=== PATIENT | male | born 1970 | race African-American/Black ===

== ENCOUNTER 2017-06-28 16:50 | Emergency (ER) | payer MEDICAID, OTHER ==
[~2017-06-28] VITALS: Ht 175.3 cm; Wt 100.0 kg
[~2017-06-28 16:50] MED LIST: ASA; SOMAS; VICODIN
[2017-06-28] MEDS ORDERED: KETOROLAC 60MG/2ML VIAL IM STA (20:05)
[2017-06-28 20:49] LABS: BASOPHILS % 0.6 % (0.0-2.0); EOSINOPHILS % 0.6 % (0.0-5.0); HEMATOCRIT. 41.7 % (42.0-52.0); HEMOGLOBIN. 14.3 g/dL (14.0-18.0); LYMPHOCYTES % 15.9 % (20.0-50.0); MEAN CORPUSCULAR HEMOGLOBIN 30.6 pg (28.0-32.0); MEAN CORPUSCULAR VOLUME 89.2 fL (80.0-94.0); MEAN PLATELET VOLUME 7.8 fl (7.4-10.4); MONOCYTES % 14.2 % (2.0-8.0); NEUTROPHILS % 68.7 % (40.0-76.0); PLATELET 316 x1000/uL (130-400); RED BLOOD CELL COUNT 4.67 mill/uL (4.7-6.1)
[2017-06-28 20:54] LABS: CHLORIDE 94 mEq/L (98-107)
[2017-06-28 21:04] LABS: CARBON DIOXIDE 29 mEq/L (21-32)
[2017-06-29 01:17] VITALS: BP 143/81
== END 2017-06-29 01:17 | disposition home or self-care (01) ==
LOC: ER 20:58
DX: M10.9 Gout, unspecified (principal); M25.572 Pain in left ankle and joints of left foot; D16.32 Benign neoplasm of short bones of left lower limb; I10 Essential (primary) hypertension
CPT/HCPCS: 36415; 73590; 73630; 80053; 84550; 85025; 93971; 96372; 99285; J1885

== ENCOUNTER 2018-10-20 16:40 | Inpatient (IN) | payer OTHER ==
[~2018-10-20] VITALS: Ht 170.2 cm; Wt 104.9 kg
[2018-10-20] MEDS ORDERED: ASPIRIN 81MG TABLET PO ONE (20:00)
[2018-10-20] MEDS ORDERED: NITROGLYCERIN 0.4MG TABLET SL SL PRN (20:00)
[2018-10-20 20:10] LABS: CHLORIDE 98 mEq/L (98-107)
[2018-10-20 20:12] LABS: BASOPHILS % 1.2 % (0.0-2.0); HEMATOCRIT. 47.9 % (42.0-52.0); HEMOGLOBIN. 16.3 g/dL (14.0-18.0); LYMPHOCYTES % 27.1 % (20.0-50.0); MEAN CORPUSCULAR HEMOGLOBIN 30.9 pg (28.0-32.0); MEAN PLATELET VOLUME 8.1 fl (7.4-10.4); MONOCYTES % 9.8 % (2.0-8.0); NEUTROPHILS % 60.9 % (40.0-76.0); PLATELET 385 x1000/uL (130-400); RED BLOOD CELL COUNT 5.26 mill/uL (4.7-6.1); RED CELL DISTRIBUTION WIDTH 13.5 % (11.6-14.6)
[2018-10-20 20:18] LABS: D-DIMER < 0.19 mg/L FEU (<0.50); INR 1.2; PROTHROMBIN TIME 11.6 sec (9.1-11.1)
[2018-10-20] MEDS ORDERED: HYDROCODONE/ACETAMINOPHEN 5/325MG TABLET PO PRN (21:45)
[2018-10-20] MEDS ORDERED: MAGNESIUM/ALUMINUM HYDROXIDE/SIMETHICONE 30ML UDC PO PRN (21:45)
[2018-10-20] MEDS ORDERED: ACETAMINOPHEN 325MG TABLET PO PRN (21:45)
[2018-10-20] MEDS ORDERED: DOCUSATE SODIUM 100MG CAPSULE PO PRN (21:45)
[2018-10-20] MEDS ORDERED: ONDANSETRON HCL 4MG/2ML INJ IV PRN (21:45)
[2018-10-20] MEDS ORDERED: IPRATROPIUM/ALBUTEROL 0.5-3(2.5)MG/3ML NEB INH PRN (21:45)
[2018-10-20] MEDS ORDERED: CLONIDINE 0.1MG TABLET PO PRN (21:45)
[2018-10-20] MEDS ORDERED: IOHEXOL-350 100 ML BOTTLE ONE (21:57)
[2018-10-20 23:43] VITALS: BP 117/86
[2018-10-20 23:56] LABS: CHLORIDE 101 mEq/L (98-107)
[2018-10-20 23:59] LABS: ETHANOL BLOOD < 10 mg/dL
[2018-10-21 00:04] LABS: CREATINE KINASE 228 IU/L (39-308)
[2018-10-21 00:06] LABS: CREATINE KINASE MB FRACTION 1.8 ng/mL (0.5-3.6)
[2018-10-21] MEDS ORDERED: RIVA20TA PO (02:10)
[2018-10-21] MEDS ORDERED: OMEP20TA2 PO (02:10)
[2018-10-21] MEDS ORDERED: AMLO10TA80 PO (02:10)
[2018-10-21] MEDS ORDERED: TRIA1TAB92 PO (02:10)
[2018-10-21] MEDS ORDERED: ASPI-1158 PO (02:10)
[2018-10-21] MEDS ORDERED: COLC0.6C3 PO (02:10)
[2018-10-21 04:00] VITALS: BP 123/95
[2018-10-21 07:36] LABS: BASOPHILS % 0.9 % (0.0-2.0); HEMATOCRIT. 43.5 % (42.0-52.0); LYMPHOCYTES % 34.3 % (20.0-50.0); MEAN CORPUSCULAR HEMOGLOBIN 31.5 pg (28.0-32.0); MEAN CORPUSCULAR VOLUME 91.1 fL (80.0-94.0); MEAN PLATELET VOLUME 8.3 fl (7.4-10.4); MONOCYTES % 13.4 % (2.0-8.0); NEUTROPHILS % 49.4 % (40.0-76.0); PLATELET 371 x1000/uL (130-400); RED BLOOD CELL COUNT 4.77 mill/uL (4.7-6.1); RED CELL DISTRIBUTION WIDTH 13.8 % (11.6-14.6)
[2018-10-21] MEDS ORDERED: ENOXAPARIN 30MG/0.3ML SYR SUBCUT SCH (08:00)
[2018-10-21 08:15] VITALS: BP 129/84
[2018-10-21 08:55] LABS: *BARBITURATES SCREEN URINE NEGATIVE (NEGATIVE)
[2018-10-21 08:56] LABS: *BENZODIAZEPINES SCREEN URINE NEGATIVE (NEGATIVE); METHADONE URINE SCREEN NEGATIVE (NEGATIVE); OPIATES URINE SCREEN PRESUMTIVE POSITIVE (NEGATIVE)
[2018-10-21 08:57] LABS: CANNABINOID URINE SCREEN PRESUMTIVE POSITIVE (NEGATIVE); PHENCYCLIDINE URINE SCREEN NEGATIVE (NEGATIVE)
[2018-10-21 09:02] LABS: *AMPHETAMINES SCREEN URINE NEGATIVE (NEGATIVE)
[2018-10-21 09:10] LABS: *COCAINE SCREEN URINE NEGATIVE (NEGATIVE)
[2018-10-21] MEDS: ASPIRIN 81MG EC TABLET PO SCH (09:27)
[2018-10-21] MEDS ORDERED: HYDRALAZINE 20MG/ML VIAL IV PRN (11:00)
[2018-10-21] MEDS ORDERED: POTASSIUM CHLORIDE 20MEQ TABLET SR PO SCH (11:00)
[2018-10-21 11:52] VITALS: BP 115/80
[2018-10-21 11:55] LABS: CREATINE KINASE 229 IU/L (39-308)
[2018-10-21 11:56] LABS: CREATINE KINASE MB FRACTION 1.4 ng/mL (0.5-3.6); HDL CHOLESTEROL 47 mg/dL (40-59); LDL CHOLESTEROL 124 mg/dL (5-100)
[2018-10-21] MEDS ORDERED: MAGNESIUM 2 G PREMIX 50 ML IV SCH (12:00)
[2018-10-21] MEDS: AMLODIPINE 2.5MG TABLET PO SCH ×2 (13:22→21:37)
[2018-10-21 16:10] VITALS: BP 123/76
[2018-10-21] MEDS: RIVAROXABAN 20 MG TABLET PO SCH (18:28)
[2018-10-21 19:41] LABS: HEPATITIS B SURFACE ANTIGEN NEGATIVE
[2018-10-21 20:10] LABS: HEPATITIS A AB IGM NEGATIVE (NEGATIVE)
[2018-10-21] MEDS: ATORVASTATIN CALCIUM 40MG TABLET PO SCH (21:37)
[2018-10-21] MEDS: ZOLPIDEM TARTRATE 5MG TABLET PO PRN (21:37)
[2018-10-22] VITALS: BP 110/74
[2018-10-22 04:00] VITALS: BP 123/88
[2018-10-22 07:06] LABS: BASOPHILS % 0.3 % (0.0-2.0); EOSINOPHILS % 3.2 % (0.0-5.0); HEMATOCRIT. 44.5 % (42.0-52.0); HEMOGLOBIN. 15.4 g/dL (14.0-18.0); LYMPHOCYTES % 36.6 % (20.0-50.0); MEAN CORPUSCULAR HEMOGLOBIN 31.4 pg (28.0-32.0); MEAN CORPUSCULAR VOLUME 90.6 fL (80.0-94.0); MEAN PLATELET VOLUME 7.9 fl (7.4-10.4); MONOCYTES % 14.1 % (2.0-8.0); NEUTROPHILS % 45.8 % (40.0-76.0); PLATELET 313 x1000/uL (130-400); RED BLOOD CELL COUNT 4.91 mill/uL (4.7-6.1); RED CELL DISTRIBUTION WIDTH 13.6 % (11.6-14.6)
[2018-10-22 07:55] LABS: CHLORIDE 102 mEq/L (98-107)
[2018-10-22 08:03] LABS: LDL CHOLESTEROL 116 mg/dL (5-100)
[2018-10-22 08:04] LABS: CREATINE KINASE 203 IU/L (39-308); CREATINE KINASE MB FRACTION 1.6 ng/mL (0.5-3.6); HDL CHOLESTEROL 46 mg/dL (40-59)
[2018-10-22 08:28] VITALS: BP 124/84
[2018-10-22] MEDS: ASPIRIN 81MG EC TABLET PO SCH (11:18)
[2018-10-22] MEDS: AMLODIPINE 2.5MG TABLET PO SCH ×2 (11:18→20:25)
[2018-10-22] MEDS: POTASSIUM CHLORIDE 20MEQ TABLET SR PO SCH (11:19)
[2018-10-22 12:10] VITALS: BP 176/82
[2018-10-22] MEDS ORDERED: REGADENOSON 0.4 MG/5 ML IV ONE (15:00)
[2018-10-22 16:05] VITALS: BP 123/78
[2018-10-22] MEDS: RIVAROXABAN 20 MG TABLET PO SCH (18:22)
[2018-10-22 20:00] VITALS: BP 128/80
[2018-10-22] MEDS: ATORVASTATIN CALCIUM 40MG TABLET PO SCH (20:25)
[2018-10-22] MEDS: ZOLPIDEM TARTRATE 5MG TABLET PO PRN (20:43)
[2018-10-23] VITALS: BP 131/70
[2018-10-23 04:00] VITALS: BP 122/77
[2018-10-23 07:40] VITALS: BP 131/93
[2018-10-23] MEDS ORDERED: REGADENOSON 0.4 MG/5 ML IV ONE (08:25)
[2018-10-23] MEDS: POTASSIUM CHLORIDE 20MEQ TABLET SR PO SCH (09:31)
[2018-10-23] MEDS: ASPIRIN 81MG EC TABLET PO SCH (09:31)
[2018-10-23] MEDS: AMLODIPINE 2.5MG TABLET PO SCH (09:36)
[2018-10-23 12:00] VITALS: BP 136/75
[2018-10-23 13:02] VITALS: BP 136/75
[2018-10-23 16:00] VITALS: BP 139/57
== END 2018-10-23 15:00 | disposition home or self-care (01) | DRG 203 ==
LOC: ER 16:40 → EDBEDREQ 20:51 → EDBEDREQTM 20:51 → 6WST 21:28 → EDBEDREQ 21:30 → EDBEDREQTM 21:30 → ENRESERV 22:43
PROVIDERS: ADMIT Internal Medicine; ATTEND Internal Medicine
DX: M94.0 Chondrocostal junction syndrome [Tietze] (principal); I11.0 Hypertensive heart disease with heart failure; E83.42 Hypomagnesemia; I50.9 Heart failure, unspecified; E87.6 Hypokalemia; K21.9 Gastro-esophageal reflux disease without esophagitis; M54.5 Low back pain; M13.811 Other specified arthritis, right shoulder; K29.70 Gastritis, unspecified, without bleeding; F17.200 Nicotine dependence, unspecified, uncomplicated; G43.909 Migraine, unspecified, not intractable, without status migrainosus; H54.8 Legal blindness, as defined in USA; G89.29 Other chronic pain; Z86.711 Personal history of pulmonary embolism; Z79.01 Long term (current) use of anticoagulants
CPT/HCPCS: 36415; 71045; 71275; 73030; 78452; 80048; 80061; 80305; 82550; 82553; 82962; 83735; 83880; 84443; 84484; 85379; 86705; 86709; 86803; 87340; 93005; 93017; 93306; 93970; 99285; A9500; C1893; G0482; J1650; J2785; J3475; J7050; Q9967

== ENCOUNTER 2022-01-13 17:55 | Emergency (ER) | payer MEDICAID, OTHER ==
[~2022-01-13] VITALS: Ht 170.2 cm; Wt 122.0 kg
[~2022-01-13 17:55] MED LIST changes: +AMLO10TA80 PO; -ASA; +ASPI-1406 PO; +COLC0.6C3 PO; +OMEP20TA2 PO; +RIVA20TA PO; -SOMAS; +TRIA1TAB92 PO; -VICODIN
[2022-01-13 18:02] VITALS: BP 149/106
[2022-01-13 19:16] LABS: BASOPHILS % 1.4 % (0.0-2.0); EOSINOPHILS % 2.4 % (0.0-5.0); HEMATOCRIT. 48.7 % (42.0-52.0); HEMOGLOBIN. 16.7 g/dL (14.0-18.0); LYMPHOCYTES % 38.2 % (20.0-50.0); MEAN CORPUSCULAR HEMOGLOBIN 31.3 pg (28.0-32.0); MEAN CORPUSCULAR VOLUME 91.2 fL (80.0-94.0); MEAN PLATELET VOLUME 7.8 fl (7.4-10.4); MONOCYTES % 12.7 % (2.0-8.0); NEUTROPHILS % 45.3 % (40.0-76.0); PLATELET 264 x1000/uL (130-400); RED BLOOD CELL COUNT 5.34 mill/uL (4.7-6.1); RED CELL DISTRIBUTION WIDTH 14.7 % (11.6-14.6)
[2022-01-13 19:20] LABS: CHLORIDE 102 mEq/L (98-107)
[2022-01-13] MEDS ORDERED: IOHEXOL-350 100 ML BOTTLE ONE (22:32)
== END 2022-01-13 23:54 | disposition home or self-care (01) ==
LOC: ER 17:55
DX: R07.89 Other chest pain (principal); R06.02 Shortness of breath; I10 Essential (primary) hypertension; G43.909 Migraine, unspecified, not intractable, without status migrainosus; F12.10 Cannabis abuse, uncomplicated; H54.7 Unspecified visual loss; Z86.718 Personal history of other venous thrombosis and embolism; Z79.01 Long term (current) use of anticoagulants; Z86.711 Personal history of pulmonary embolism; Z79.82 Long term (current) use of aspirin
CPT/HCPCS: 36415; 71045; 71275; 80053; 83880; 84484; 85025; 85379; 93005; 99285; Q9967